=== PATIENT | male | born 1955 | race Two or more races ===

== ENCOUNTER 2023-12-13 08:03 | Emergency (ER) | payer OTHER, MEDICARE, SELFPAY ==
[2023-12-13 08:03] VITALS: BMI 26.5
[2023-12-13 08:04] VITALS: BP 156/93
[2023-12-13] MEDS: VALIUM 5 MG PO (08:20)
[2023-12-13] MEDS: TYLENOL 1000 MG PO (08:20)
--- NOTE | 2023-12-13 08:29 | ED.GENMED ---
History of Present Illness
<Topher Weaver Jr., PA-C - Last Filed: 12/13/23 10:44>
General
Chief Complaint: Musculo-Skeletal Complaint
Source: patient
Exam Limitations: none
Time Seen by Provider: 12/13/23 08:09
Nursing documentation reviewed up to this point in time: agreed with
Travel History
Have you had any contact with someone who has COVID-19?: No
Do you have any symptoms of coronavirus? Fever > 100 degrees, chills, cough, shortness of breath, sore throat, loss of taste or smell, muscle aches, or headache?: No
History of Present Illness
History of Present Illness:
68-year-old male with Sameer history of hypertension diabetes presenting to the emergency department today with concerns of left-sided neck discomfort that started upon awakening this morning. He claims that he is currently on vacation and did not
have his typical sleeping situation. Neck felt very tight when he woke up denies any additional symptoms no headache no changes in vision numbness weakness or additional concerns. Has had similar symptoms in the past. Not improving since
yesterday.
Review of Systems
<Topher Weaver Jr., PA-C - Last Filed: 12/13/23 10:44>
Review of Systems
Allergies reviewed?: Yes
All Other Systems: ROS reviewed and negative except as documented in HPI and ROS
Phy Exam
<Topher Weaver Jr., PA-C - Last Filed: 12/13/23 10:44>
Physical Exam
Physical Exam:
GENERAL: Alert , in no apparent distress
EYE: pupils equal and reactive
NECK: Supple, no significant adenopathy.
ENT: Mild discomfort with palpation throughout the sternocleidomastoid as well as at the base of the left-sided posterior skull at site of insertion of the sternocleidomastoid o/p clr, mmm.
CARDIAC: Regular rate and rhythm .
LUNGS: Clear breath sounds bilaterally, no acute respiratory distress, no wheezes/rales/rhonchi
ABDOMEN: Soft, without focal tenderness, no r/g, no cvat
NEUROLOGICAL: Alert and oriented, no focal neuro deficits
SKIN: Warm and dry, skin intact.
MUSCULOSKELETAL: No edema, well perfused.
PSYCH: Normal and appropriate interaction.
Course
<Topher Weaver Jr., PA-C - Last Filed: 12/13/23 10:44>
Orders/Labs/Results
Orders:
Orders
12/13/23 08:15
Acetaminophen [Tylenol] 1,000 mg PO NOW STA
Diazepam [Valium] 5 mg PO NOW STA
12/13/23 09:09
Ketorolac [Toradol] 15 mg IM NOW STA
12/13/23 09:31
CR Cervical Spine 2 or 3 Vw Urgent
Comment:
Reason For Exam: neck pain
Vital Signs
Initial and Last Documented VS:
Initial Vital Signs
Temp Pulse Resp BP Pulse Ox
97.9 F 66 18 156/93 100
12/13/23 08:04 12/13/23 08:04 12/13/23 08:04 12/13/23 08:04 12/13/23 08:04
Last Documented Vital Signs
Temp Pulse Resp BP Pulse Ox
97.9 F 72 20 134/77 99
12/13/23 08:04 12/13/23 10:00 12/13/23 10:00 12/13/23 10:00 12/13/23 10:00
<Eduardo Lane MD - Last Filed: 12/13/23 09:35>
Orders/Labs/Results
Orders:
Orders
12/13/23 08:15
Acetaminophen [Tylenol] 1,000 mg PO NOW STA
Diazepam [Valium] 5 mg PO NOW STA
12/13/23 09:09
Ketorolac [Toradol] 15 mg IM NOW STA
12/13/23 09:31
CR Cervical Spine 2 or 3 Vw Urgent
Comment:
Reason For Exam: neck pain
Vital Signs
Initial and Last Documented VS:
Initial Vital Signs
Temp Pulse Resp BP Pulse Ox
97.9 F 66 18 156/93 100
12/13/23 08:04 12/13/23 08:04 12/13/23 08:04 12/13/23 08:04 12/13/23 08:04
Last Documented Vital Signs
Temp Pulse Resp BP Pulse Ox
97.9 F 72 20 134/77 99
12/13/23 08:04 12/13/23 10:00 12/13/23 10:00 12/13/23 10:00 12/13/23 10:00
<Topher Weaver Jr., PA-C - Last Filed: 12/13/23 10:44>
MDM/Problems Addressed
MDM/Problems Addressed:
68-year-old male presenting to the emergency department today with concerns of neck stiffness and discomfort with any movement starting yesterday morning upon awakening. Has had similar symptoms in the past when he pulled a muscle. He tried taking
Motrin without relief. Last dose this morning. Denies numbness weakness normal neurologic evaluation no headache no change in vision no bruits. Symptoms consistent with torticollis. Medications improving to treatment. Patient additionally seen
by attending physician. X-ray without emergent finding stable for outpatient management return precautions given.
<SOWMYA Price Jr. Last Filed: 12/13/23 10:44>
*Critical Care Note
Total Time (30-74mins, 75-104mins- exclusive of procedures): Not Applicable
ED Attending Note
<SOWMYA Price Jr. Last Filed: 12/13/23 10:44>
-
Portions of this chart may have been created with voice recognition software.� Occasional wrong word or��sound alike� substitutions may have occurred due to the inherent limitations of voice recognition software.
<Eduardo Lane MD - Last Filed: 12/13/23 09:35>
ED Attending Note
Patient seen and examined by attending physician: Yes
ED Attending Note:
I have seen and evaluated the patient with a [id number] encounter. I have spoken to the advance practicer provider and involved in the medical history, the physical exam, medical decision making.
Evaluation and management service: agree unless noted differently below.
Results interpretation: agree unless noted differently below.
Focused HPI: 68-year-old male with a past medical history of hypertension, diabetes who presents to the emergency room for evaluation of neck pain. Patient reports he was in [place] on a trip, went to sleep 2 nights ago and woke up yesterday
morning with significant pain in the back of his neck. He says pain continued throughout the day and last night he had difficulty sleeping due to his neck pain. He says he took some Motrin but it did not seem to help. He says he tried massaging
the neck but again it did not help. Decided to come to the emergency room for assessment. No other complaints. No falls or trauma.
Physical exam: Awake alert, sitting straight up in bed with head straight ahead. Hypertensive but otherwise normal vitals. He has significant tenderness in the left occipital region and along the trapezius really bilaterally but worse on the left.
He has a palpable knot in the left upper trapezius. No midline cervical spine tenderness. He has pain with rotation of the neck both ways but worse with rotation towards the left, also has significant pain with flexion extension. He has no
bruits on auscultation of the neck.
Medical Decision Makin-year-old male presents for evaluation of neck pain for the past 24 hours�woke up with it yesterday and it was worse when he was trying to sleep last night. History and exam is consistent with torticollis/cervical spasm.
He does have palpable knot in the area of maximal pain. Performed local trigger point injection with lidocaine/bupivacaine. Will dose with Valium and Toradol. Reassess after the above.
Discharge Plan
Departure
Patient Disposition: Home (Routine Discharge)
Date of Disposition: 12/13/23
Time of Disposition: 10:42
Patient with high blood pressure during this ER visit?: No
Condition: Good
Covid-19: Not Applicable
Discharge Problem:
Neck strain
Instructions: Torticollis (DC)
Prescriptions:
New
ibuprofen 600 mg tablet
600 mg PO TID PRN (Reason: Pain) Qty: 10 0RF
diazepam [Valium] 5 mg tablet
5 mg PO HS PRN (Reason: muscle spasm) Qty: 3 0RF
Referrals:
Joshua Rolle DO [Family Provider] -
Activity Restrictions/Additional Instructions:
You came to emergency department today for concerns of neck discomfort. You likely have a neck muscle strain. This will hopefully improve over the next few days. You can use the prescribed medications to help with symptoms. Return to the
emergency department for any worsening, new or concerning symptoms. With the Valium please be careful taking this medication as this can cause drowsiness.
Interventions
Interventions:
*Risk Screen - Suicide Last Done: 12/13/23 08:04
*General Assessment Last Done: 12/13/23 08:04
*Neglect/Abuse Screening Last Done: 12/13/23 08:04
ED-Musculoskeletal Assessment Last Done: 12/13/23 08:24
Discharge Date and Time
Print Language: PARAGUAYAN
[2023-12-13] MEDS: TORADOL 15 MG IM (09:17)
[2023-12-13 10:00] VITALS: BP 134/77
[2023-12-13 11:04] VITALS: BP 125/84
== END 2023-12-13 11:04 | disposition home or self-care (01) ==
LOC: EMR 08:03
PROVIDERS: EMERGENCY PHYSICIAN Emergency Medicine; FAMILY PHYSICIAN Family Medicine
DX: S16.1XXA Strain of muscle, fascia and tendon at neck level, initial encounter (principal); X58.XXXA Exposure to other specified factors, initial encounter; I10 Essential (primary) hypertension; E11.9 Type 2 diabetes mellitus without complications
CPT/HCPCS: 99284; 20552; 96372; 72040